=== PATIENT | female | born 1985 | race Two or more races ===

== ENCOUNTER 2017-01-26 02:27 | Emergency (ER) | payer BC ==
[~2017-01-26] VITALS: Ht 165.1 cm; Wt 60.3 kg
[2017-01-26] MEDS ORDERED: DICYCLOMINE HCL 10 MG/5 ML UDC LIQ PO ONE (03:00)
[2017-01-26] MEDS ORDERED: ONDANSETRON 4 MG/2 ML VIAL IV ONE (03:00)
[2017-01-26] MEDS ORDERED: IV NORMAL SALINE 1000 ML BAG IV ONE ×2 (03:00→04:15)
[2017-01-26] MEDS ORDERED: DIPHENOXYLATE HCL/ATROP SULF TABLET PO ONE (03:00)
[2017-01-26 03:12] LABS: CREATININE 0.7 mg/dL (0.6-1.3); POTASSIUM 3.7 mmol/L (3.5-5.1)
--- NOTE | 2017-01-26 03:24 | NUR ---
PT PRESENTS WITH C/O N/V & DIARRHEA 'WATERY LIKE' AFTER EATING EVENING MEAL 01/25/17. SPOUSE AND PT STATED ATE AT SAME PLACE, PT IS THE ONLY ONE WHO IS SYMPTOMATIC. PT STATES VOMIT 3 TIMES, NO EMESIS PRESENT AT THIS TIME. PT PLACED IN RCHICKASHA, IV ESTABLISHED LT AC 18G, 1000 ML NS BOLUS STARTED. PT GIVEN LOMOTIL, ZOFRAN, AND BENTYL FOR STATED SYMPTOMS, TOLERATED WELL. PT RESTING COMFORTABLY IN NAD AT THIS TIME, LABS DRAWN BY RN AND GIVEN TO SAFETY ADMINISTRATOR AT 0315.
[2017-01-26 03:27] LABS: BASOPHILS # (AUTO) 0.1 K/uL (0.0-8.0); BASOPHILS % (AUTO) 0.6 % (0.0-2.0); EOSINOPHILS % (AUTO) 0.1 % (0.0-7.0); HEMATOCRIT 43.3 % (37-47); HEMOGLOBIN 14.3 G/DL (12.0-16.0); LYMPHOCYTES # (AUTO) 0.6 K/UL (0.8-4.8); LYMPHOCYTES % (AUTO) 4.8 % (20.5-51.5); MEAN CORPUSCULAR HEMOGLOBIN 29.9 UUG (27.0-31.0); MEAN CORPUSCULAR HGB CONC 33 g/dL (32.0-37.0); MEAN CORPUSCULAR VOLUME 90.4 FL (81.0-99.0); MONOCYTES # (AUTO) 0.5 K/UL (0.1-1.30); MONOCYTES % (AUTO) 4.5 % (0.0-11.0); NEUTROPHILS # (AUTO) 10.7 K/UL (1.8-8.9); PLATELET COUNT (AUTO) 221 K/UL (150-450); RED BLOOD CELL COUNT(AUTO) 4.79 MIL/UL (4.2-5.4); WHITE BLOOD COUNT (AUTO) 11.9 K/UL (4.0-11.2)
[2017-01-26] MEDS ORDERED: DICYCLOMINE HCL 10 MG/5 ML UDC LIQ ONE (03:32)
[2017-01-26] MEDS ORDERED: DIPHENOXYLATE HCL/ATROP SULF TABLET ONE (03:32)
[2017-01-26] MEDS ORDERED: ONDANSETRON 4 MG/2 ML VIAL ONE (03:32)
[2017-01-26] MEDS ORDERED: diphenhydrAMINE 50 MG/1 ML VIAL IV ONE ×2 (03:45→04:15)
[2017-01-26] MEDS ORDERED: METOCLOPRAMIDE HCL 10 MG/2 ML VIAL IV ONE (03:45)
--- NOTE | 2017-01-26 03:55 | NUR ---
PT REPORTED TO MD THAT SHE STILL FELT NAUSEOUS. NEW ORDERS GIVEN; PT RECEIVED BENADRYL 12.5 MG IV SLOW PUSH AND 10 MG REGLAN IV SLOW PUSH. NS BOLUS COMPLETED AT 0350, IV SALINE LOCKED AFTER ADMINISTRATION OF SECONDARY MEDS. PT TOLERATED WELL, RESTING COMFORTABLY WITH SPOUSE AT BEDSIDE. VSS, PT IN NAD AT THIS TIME.
[2017-01-26] MEDS ORDERED: METOCLOPRAMIDE HCL 10 MG/2 ML VIAL ONE (04:02)
[2017-01-26] MEDS ORDERED: diphenhydrAMINE 50 MG/1 ML VIAL ONE ×2 (04:02→04:28)
--- NOTE | 2017-01-26 04:17 | NUR ---
PT HR [id number], MD NOTIFIED AT 0400. PT DENIES ANY 'ANXIETY' SECONDARY TO REGLAN ADMINISTRATION. NEW ORDERS WRITTEN FOR ADDITIONAL DOSE OF BENADRYL AND 2 LITER NS. ADVISED PT OF SYMPTOMATIC RELIEF FROM N/V AND ABDOMINAL PAIN, INSTRUCTED ON RETURNING TO REGULAR ACTIVITIES AND DIETARY MODIFICATIONS. PT IN NAD AT THIS TIME, VSS, HR NOW 97-99, TO PT BEDSIDE FOR RE-EVALUATION.
--- NOTE | 2017-01-26 05:17 | NUR ---
Patient discharged to home in stable conditon. Written and verbal after care instructions given. Patient verbalizes understanding of instructions. PT GIVEN RX TO FILL, STRICT ER RETURN PROTOCOL GIVEN, VERBAL UNDERSTANDING RETURNED
== END 2017-01-26 05:19 | disposition home or self-care (01) ==
LOC: ER 02:27
DX: R11.2 Nausea with vomiting, unspecified (principal); R19.7 Diarrhea, unspecified
CPT/HCPCS: 36415; 83690; 84703; 85025; A4663; J1200; J2405; J2765; J7030